=== PATIENT | female | born 2000 | race Caucasian/White ===

== ENCOUNTER 2019-01-16 14:25 | Emergency (ER) | payer MEDICAID ==
--- NOTE | 2019-01-16 14:47 | ER Document Report ---
HPI - HPI Patient complains to provider of: pain while breathing Time Seen by Provider: 01/16/19 14:35 Onset: Just prior to arrival Onset/Duration: Sudden Severity: Severe Pain Level: 5 Context: Patient presents to the Emergency Department for sharp pain in the back while breathing, Patient reports she was upset prior to arrival and then started having a hard time breathing. Pt reports history of asthma and attempted to use her nebulizer with no relief. Patient is tearful. RR even/unlabored. Associated Symptoms: None Exacerbated by: Deep breathing Relieved by: Denies Similar symptoms previously: No Recently seen / treated by doctor: No - REPRODUCTIVE Reproductive: DENIES: : Past Medical History - General Information source: Patient Last Menstrual Period: 3 weeks ago - Social History Smoking Status: Unknown if Ever Smoked Cigarette use (# per day): No Frequency of alcohol use: None Drug Abuse: None Family History: Reviewed & Not Pertinent Patient has suicidal ideation: No Patient has homicidal ideation: No Pulmonary Medical History: Reports: Hx Asthma Renal/ Medical History: Denies: Hx Peritoneal Dialysis Psychiatric Medical History: Reports: Hx Attention Deficit Hyperactivity Disorder Past Surgical History: Reports: Hx Tonsillectomy - Immunizations Immunizations up to date: Yes Hx Diphtheria, Pertussis, Tetanus Vaccination: Yes Vertical Provider Document - CONSTITUTIONAL Agree With Documented VS: Yes Exam Limitations: No Limitations General Appearance: WD/WN, Mild Distress - crying, emotional - INFECTION CONTROL TRAVEL OUTSIDE OF THE [place] IN LAST 30 DAYS: No - HEENT HEENT: Atraumatic, Normocephalic - NECK Neck: Normal Inspection, Supple. negative: Lymphadenopathy-Left, Lymphadenopathy-Right - RESPIRATORY Respiratory: Breath Sounds Normal, No Respiratory Distress, Chest Non-Tender - CARDIOVASCULAR Cardiovascular: Regular Rate, Regular Rhythm - GI/ABDOMEN Gastrointestinal: Abdomen Soft, Abdomen Non-Tender - BACK Back: Normal Inspection - Patient reports left-sided trapezius tenderness to palpation. negative: CVA Tenderness-Right, CVA Tenderness-Left - MUSCULOSKELETAL/EXTREMETIES Musculoskeletal/Extremeties: BRIJESH VILLAR - NEURO Level of Consciousness: Awake, Alert, Appropriate Motor/Sensory: No Motor Deficit - DERM Integumentary: Warm, Dry Course - Re-evaluation Re-evalutation: 01/16/19 14:43 Patient very emotional, calmed down during eval 01/16/19 Chest x-ray negative. Patient is calm respiratory rate even unlabored. Patient was instructed to follow-up with primary care provider. Dictation of this chart was performed using voice recognition software; therefore, there may be some unintended grammatical errors. - Vital Signs Vital signs: Temp Pulse Resp BP Pulse Ox 98.6 F 73 22 H 123/62 99 01/16/19 14:31 01/16/19 14:31 01/16/19 14:31 01/16/19 14:31 01/16/19 14:31 - Diagnostic Test Radiology reviewed: Image reviewed, Reports reviewed - chest xray neg Discharge - Discharge Clinical Impression: Upper back pain on left side Condition: Stable Disposition: HOME, SELF-CARE Additional Instructions: *You have been evaluated for upper back pain, history of asthma *Take tylenol as indicated for your back pain *Follow up with a primary care provider within one week for recheck *Use your inhaler and nebulizer as prescribed *Return to ED for worsening condition, changes, needs
--- NOTE | 2019-01-16 15:02 | RADIOLOGY REPORT (SQ) ---
EXAM DESCRIPTION: CHEST 2 VIEWS COMPLETED DATE/TIME: 01/16/2019 2:52 pm REASON FOR STUDY: back pain, diff breathing COMPARISON: 11/27/2014 EXAM PARAMETERS: NUMBER OF VIEWS: two views TECHNIQUE: Digital Frontal and Lateral radiographic views of the chest acquired. RADIATION DOSE: NA LIMITATIONS: none FINDINGS: LUNGS AND PLEURA: No opacities, masses or pneumothorax. No pleural effusion. MEDIASTINUM AND HILAR STRUCTURES: No masses or contour abnormalities. HEART AND VASCULAR STRUCTURES: Heart normal size. No evidence for failure. BONES: No acute findings. HARDWARE: None in the chest. OTHER: No other significant finding. IMPRESSION: No acute abnormality of the lungs. No focal airspace opacity. TECHNICAL DOCUMENTATION: JOB ID: [id number] [employer]- All Rights Reserved Reading location - IP/workstation name: [email or web address]
[2019-01-16 15:24] VITALS: BP 123/82
== END 2019-01-16 15:20 | disposition home or self-care (01) ==
LOC: ER 14:25
DX: M54.89 Other dorsalgia (principal); J45.909 Unspecified asthma, uncomplicated
CPT/HCPCS: 71046; 99284